=== PATIENT | male | born 1945 | race Caucasian/White ===

== ENCOUNTER 2017-03-10 13:13 | Inpatient (IN) | payer MEDICARE, BC ==
[~2017-03-10] VITALS: Ht 167.6 cm; Wt 86.2 kg
--- NOTE | 2017-03-10 13:14 | NUR ---
PT TO ER BED 10. PRESENTS W/ L FACIAL DROOPING AND LUE WEAKNESS SINCE FRIDAY WHILE FISHING. HX OF STROKE. GOWNED AND PLACED ON MONITOR. 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 DENIES PAIN.
--- NOTE | 2017-03-10 13:26 | NUR ---
IV LINE STARTED BLOOD DRAWN AND SENT TO LAB.
[2017-03-10 13:37] LABS: BASOPHILS % (AUTO) 0.4 % (0.0-2.0); EOSINOPHILS # (AUTO) 0.1 /CMM (0.0-0.7); EOSINOPHILS % (AUTO) 0.8 % (0.0-6.0); HEMATOCRIT 48 % (39-51); HEMOGLOBIN 16.6 g/dL (13.5-17.5); LYMPHOCYTES # (AUTO) 1.9 /CMM (0.8-4.8); LYMPHOCYTES % (AUTO) 25.8 % (20.0-44.0); MEAN CORPUSCULAR HEMOGLOBIN 31 PG (26.0-33.0); MEAN CORPUSCULAR HGB CONC 35 g/dl (31.0-36.0); MEAN CORPUSCULAR VOLUME 88 fL (80-96); MONOCYTES # (AUTO) 0.8 /CMM (0.1-1.30); MONOCYTES % (AUTO) 11.5 % (2.0-12.0); NEUTROPHILS # (AUTO) 4.5 /CMM (1.8-8.9); NEUTROPHILS % (AUTO) 61.5 % (43.0-81.0); PLATELET COUNT (AUTO) 164 /CMM (150-450); RDW COEFFICIENT OF VARIATION 13.7 (11.5-15.0); RED BLOOD CELL COUNT(AUTO) 5.43 MIL/uL (4.5-6.0); WHITE BLOOD COUNT (AUTO) 7.3 K/uL (4.3-11.0)
--- NOTE | 2017-03-10 13:42 | NUR ---
PT TO RADIOLOGY FOR HEAD CT SCAN VIA [facility].
[2017-03-10] MEDS ORDERED: LOSA1TAB36 PO (13:43)
[2017-03-10] MEDS ORDERED: RIVA10TA PO (13:43)
[2017-03-10] MEDS ORDERED: LORA1TAB82 PO (13:43)
[2017-03-10 13:55] LABS: CALCIUM, SERUM 9.8 mg/dL (8.5-10.1); CARBON DIOXIDE 28 mmol/L (21-32); CHLORIDE 100 mmol/L (98-107); CREATININE 0.9 mg/dL (0.6-1.3); GLUCOSE 103 mg/dL (74-106); POTASSIUM 3.7 mmol/L (3.5-5.1); SODIUM SERUM 137 mmol/L (136-145); UREA NITROGEN, BLOOD 14 mg/dL (7-18)
--- NOTE | 2017-03-10 13:55 | NUR ---
CALLED Rosum HIM CODER WAS PAGED.
[2017-03-10] MEDS ORDERED: ASPIRIN 325 MG TABLET ONE (13:56)
[2017-03-10 13:57] LABS: TROPONIN I < 0.017 ng/mL (0.00-0.056)
[2017-03-10] MEDS ORDERED: ASPIRIN 325 MG TABLET PO ONE (14:00)
[2017-03-10 14:01] LABS: ALANINE AMINOTRANSFERASE 43 U/L (12-78); ALBUMIN 4.1 g/dL (3.4-5.0); ALKALINE PHOSPHATASE 54 U/L (46-116); ASPARTATE AMINOTRANSFERASE 28 U/L (15-37); BILIRUBIN,DIRECT 0.2 mg/dL (0.0-0.2); TOTAL PROTEIN, SERUM 8.4 g/dL (6.4-8.2)
[2017-03-10 14:02] LABS: INR 1.31 (0.87-1.13); PROTHROMBIN TIME 14.3 SECS (9.5-12.7)
--- NOTE | 2017-03-10 14:23 | NUR ---
CALLED [facility] SHEET MANUFACTURING SUPERVISOR WAS REPAGED.
[2017-03-10] MEDS ORDERED: ONDANSETRON HCL/PF 4 MG/2 ML VIAL IVP PRN (15:00)
[2017-03-10] MEDS ORDERED: MAGNESIUM HYDROXIDE 30 ML UDC PO PRN (15:00)
[2017-03-10] MEDS ORDERED: Z GUARD REMEDY 2 OZ OINT TP PRN (15:00)
[2017-03-10] MEDS ORDERED: MAG HYDROX/AL HYDROX/SIMETH 30 ML UDC PO PRN (15:00)
[2017-03-10] MEDS ORDERED: ZOLPIDEM TARTRATE 5 MG TABLET PO PRN (15:00)
[2017-03-10] MEDS ORDERED: ACETAMINOPHEN 325 MG TABLET PO PRN (15:00)
[2017-03-10] MEDS ORDERED: HYDROCODONE/APAP 5/325MG 1 EACH TABLET PO PRN (15:00)
--- NOTE | 2017-03-10 15:07 | NUR ---
REPORT GIVEN TO SYBIL. PT AWAITNG TRANSFER TO FLOOR.
[2017-03-10 16:00] VITALS: BP 136/64
--- NOTE | 2017-03-10 17:00 | NUR ---
PT ADMITTED FROM E.R .A/O X4 NO C/O PAIN,NO S/S OF DISTRESS.BREATHING EVEN AND UNLABORED ON ROOM AIR.NO S/S OF DISTRESS.I.V CDI AND PATENT.SAFETY MEASURES IN PLACE.BED IN LOW AND LOCKED POSITION.WILL CONTONUE TO MONITOR FOR CHANGES.
[2017-03-10] MEDS ORDERED: RIVAROXABAN 10 MG TABLET PO SCH (18:00)
--- NOTE | 2017-03-10 19:30 | NUR ---
RN OPENING NOTES: RECEIVED PT ON BED AWAKE ALOX4 VERBALLY RESPONSIVE. ON ROOM AIR, NOT IN APPARENT DISTRESS. IV ACCESS REMAINED INTACT ON R AC G18 SL AT THIS TIME. SR ON MONITOR HR AT 64. SAFETY MEASURES ENSURED AT ALL TIMES, CALL LIGHT WITHIN REACH. CONTINUOUSLY MONITORED.
[2017-03-10 20:00] VITALS: BP 143/86
[2017-03-10 20:27] VITALS: BP 143/86
[2017-03-11] VITALS (7 sets, daily range): BP systolic 125–147; BP diastolic 74–91
[2017-03-11 07:28] LABS: BASOPHILS % (AUTO) 0.5 % (0.0-2.0); EOSINOPHILS # (AUTO) 0.1 /CMM (0.0-0.7); EOSINOPHILS % (AUTO) 1.2 % (0.0-6.0); HEMATOCRIT 46 % (39-51); LYMPHOCYTES # (AUTO) 1.8 /CMM (0.8-4.8); LYMPHOCYTES % (AUTO) 26.1 % (20.0-44.0); MEAN CORPUSCULAR HEMOGLOBIN 31 PG (26.0-33.0); MEAN CORPUSCULAR HGB CONC 35 g/dl (31.0-36.0); MEAN CORPUSCULAR VOLUME 88 fL (80-96); MONOCYTES # (AUTO) 0.7 /CMM (0.1-1.30); MONOCYTES % (AUTO) 9.6 % (2.0-12.0); NEUTROPHILS # (AUTO) 4.4 /CMM (1.8-8.9); NEUTROPHILS % (AUTO) 62.6 % (43.0-81.0); PLATELET COUNT (AUTO) 155 /CMM (150-450); RDW COEFFICIENT OF VARIATION 14.1 (11.5-15.0); RED BLOOD CELL COUNT(AUTO) 5.17 MIL/uL (4.5-6.0)
[2017-03-11] MEDS: PANTOPRAZOLE 40 MG TABLET.DR PO SCH (07:30)
--- NOTE | 2017-03-11 07:30 | NUR ---
RN CLOSING NOTES: PATIENT IN BED; NOT IN DISTRESS. NO DECLINE IN MENTAL STATUS. STROKE ASSESSMENT AND EDUCATION DONE. SAFETY MEASURES ENSURED. MONITORED ACCORDINGLY.
[2017-03-11 07:45] LABS: CALCIUM, SERUM 9.2 mg/dL (8.5-10.1); CARBON DIOXIDE 25 mmol/L (21-32); CHLORIDE 104 mmol/L (98-107); CREATININE 0.8 mg/dL (0.6-1.3); GLUCOSE 109 mg/dL (74-106); MAGNESIUM 2.1 mg/dL (1.8-2.4); PHOSPHORUS 3.6 mg/dL (2.5-4.9); POTASSIUM 3.8 mmol/L (3.5-5.1); SODIUM SERUM 140 mmol/L (136-145); UREA NITROGEN, BLOOD 13 mg/dL (7-18)
[2017-03-11 07:54] LABS: CHOLESTEROL 174 mg/dL (<200); HDL CHOLESTEROL 31 mg/dL (40-60); LDL 113 mg/dL (0-99); THYROID STIMULATING HORMONE 1.662 uIU/mL (0.358-3.74); TRIGLYCERIDES 102 mg/dL (30-150)
[2017-03-11] MEDS ORDERED: LOSARTAN/HCTZ 50-12.5MG/ 1 EA TABLET PO SCH (09:00)
--- NOTE | 2017-03-11 10:17 | NUR ---
PATIENT STATES HE TAKES HE TAKES HYZAAR 0.5 TAB AT HOME AND HERE ORDERED 1.5 TAB. PATIENT DOES NOT WANT TO TAKE THAT DOSE THIS MORNING. INFORMED KRISTIN FONSECA WHO SAID HE WILL REVIEW AND ADJUST ACCORDINGLY. INFORMED PATIENT OF THIS.
[2017-03-11] MEDS: ASPIRIN EC 325 MG TABLET.DR PO SCH (10:39)
[2017-03-11 14:48] LABS: APPEARANCE,URINE CLEAR (CLEAR); BILIRUBIN,URINE NEGATIVE (NEGATIVE); BLOOD, URINE 1+ Ery/uL (NEGATIVE); COLOR,URINE YELLOW (YELLOW); KETONES,URINE NEGATIVE (NEGATIVE); LEUKOCYTE ESTERASE ,URINE NEGATIVE (NEGATIVE); NITRITE, URINE NEGATIVE (NEGATIVE); PROTEIN,URINE NEGATIVE (NEGATIVE); UGLUCOSE NEGATIVE (NEGATIVE); UROBILINOGEN,URINE 0.2 EU/dL (0.2)
[2017-03-11 15:33] LABS: BACTERIA,URINE None seen /HPF (None Seen); MUCUS,URINE Few /LPF (None Seen); SQUAMOUS EPITHELIAL CELL,UR Rare /HPF (None Seen); WBC,URINE 0-2 /HPF (0-3)
--- NOTE | 2017-03-11 15:59 | NUR ---
paged radiology regarding carotid duplex order- pending imaging
[2017-03-11] MEDS ORDERED: RIVAROXABAN 10 MG TABLET PO SCH (18:00)
--- NOTE | 2017-03-11 18:24 | NUR ---
lluvia Vallejo to discuss MRI results and plan of care with patient
--- NOTE | 2017-03-11 19:23 | NUR ---
CLOSING NOTE LEFT PATIENT IN STABLE CONDITION. SPOKE TO KRISTIN FONSECA ABOUT PLAN OF CARE. DOCTOR SAID PATIENT TO STAY OVER NIGHT S/P MRI RESULTS. PATIENT VERBALIZED UNDERSTANDING. CALL LIGHT IN REACH.
--- NOTE | 2017-03-11 19:30 | NUR ---
TYPING ELEMENT MACHINE OPERATOR INITIAL NOTE RECEIVED REPORT FROM MARKOS MACKAY. PT IS A/A/O X4. LUNG SOUNDS CLEAR. BOWEL SOUNDS PRESENT. IV PATENT AND INTACT. PULSES PRESENT. NO FACIAL DROOP NOTED. SPEECH CLEAR. PT IS AMBULATORY WITH STEADY GAIT. BED IN LOW LOCKED POSITION. CALL LIGHT WITHIN REACH. WILL CONTINUE TO MONITOR.
--- NOTE | 2017-03-11 19:33 | NUR ---
RN NOTE PER DOCTOR, PATIENT OK TO TAKE 1 TAB HYZAAR THIS IS THE REGIMEN HE FOLLOW AT HOME- DOSE ADJUSTED, PATIENT AWARE.
--- NOTE | 2017-03-11 21:30 | NUR ---
RN INITIAL NOTE RECEIVED PT IN NO ACUTE DISTRESS IN BED. PT IS A/O X 4 AND ABLE TO MAKE NEEDS KNOWN. PT IS ON RA AND TOLERATING WELL WITH O2 SAT @ 100%. PT DENIES ANY SOB, DIFFICULTY BREATHING OR PAIN AT THIS TIME. PT HAS IV IN RAC 18G THAT IS CLEAN DRY INTACT AND PATENT WITH SALINE FLUSH. IV IS SALINE LOCKED. PT IS ABLE TO ABMULATE WITHOUT ASSISTANCE AND HAS STEADY GAIT. BED IN LOW LOCK POSITION WITH RIALS UP X 2 CALL LIGHT WITHIN REACH AND ALL SAFETY MEASURES ENSURED AND CARRIED OUT. WILL CONTINUE TO MONITOR PT.
--- NOTE | 2017-03-11 21:30 | NUR ---
RN NOTE RECEIVED PT FROM MARI CODIE WATKINS FOR CONTINUITY OF CARE.
[2017-03-11] MEDS ORDERED: ATORVASTATIN 40 MG TABLET PO SCH (22:00)
[2017-03-12] VITALS: BP 133/85
[2017-03-12 04:00] VITALS: BP 123/64
--- NOTE | 2017-03-12 06:36 | NUR ---
RN CLOSING NOTE PT REMAINS IN NO ACUTE DISTRESS IN BED. PT DID NOT HAVE ANY SIGNIFICANT CHANGE IN CONDITION DURING SHIFT. ALL NEEDS MET ALL ORDERS CARRIED OUT. WILL ENDORSE TO AM RN FOR CONTINUITY OF CARE.
--- NOTE | 2017-03-12 07:40 | NUR ---
RN INITIAL NOTE RECEIVED REPORT FROM BETTY HERNÁNDEZ NURSE FOR RG. A/O X 4. TELE SR. RAC 18G INTACT. WILL CONTINUE TO MONITOR CLOSELY.ALL SAFETY MEASURES IN PLACE. PT ABLE TO AMB .
[2017-03-12 08:00] VITALS: BP 143/84
[2017-03-12] MEDS: ASPIRIN EC 325 MG TABLET.DR PO SCH (08:31)
[2017-03-12] MEDS: PANTOPRAZOLE 40 MG TABLET.DR PO SCH (08:31)
[2017-03-12] MEDS ORDERED: LOSARTAN/HCTZ 50-12.5MG/ 1 EA TABLET PO SCH ×2 (09:00)
[2017-03-12 12:00] VITALS: BP 130/53
[2017-03-12] MEDS ORDERED: ASPI81TA2 PO (13:16)
--- NOTE | 2017-03-12 13:46 | NUR ---
RN NOTE PT DC HOME. PT STABLE FRIEND PICKING HIM UP. WALKED PT OUT TO [facility]. ALL DC INSTRUCTIONS GIVEN TO PT ALL QUESTIONS ANSWERED. REMOVED IV AND ID BAND. BELONGING LIST SIGNED. PT SKIN INTACT. PT CLEAN AND DRY. ALL ORDERS CARRIED OUT. ALL MEDICATION GIVEN. RETURNED HOME MEDICATION FROM PHARMACY.
--- NOTE | 2017-03-18 12:08 | NUR ---
ff. call done to pt. ,left message on voicemail [phone].updated discharge core measures with charge nurse
== END 2017-03-12 13:45 | disposition home or self-care (01) | DRG 66 ==
LOC: ER 13:15 → TELE1 14:52
DX: I63.9 Cerebral infarction, unspecified (principal); Z86.73 Personal history of transient ischemic attack (TIA), and cerebral infarction without residual deficits; I10 Essential (primary) hypertension
CPT/HCPCS: 36415; 70450-TC; 70551-TC; 71010-TC; 80048-TC; 80061-TC; 80076-TC; 80305; 81000-TC; 82962-TC; 83735-TC; 84100-TC; 84443-TC; 84484-TC; 85025-TC; 85730-TC; 86850-TC; 87081-TC; 93307-TC; 93880-TC; 97001-TC; A4606; A6403; Z7610